=== PATIENT | male | born 1995 | race Asian ===

== ENCOUNTER 2019-03-11 18:01 | Emergency (ER) | payer OTHER ==
--- NOTE | 2019-03-11 18:48 | ED ---
Shortness of Breath - HPI Summary HPI Summary: Patient complains of waking up this morning at 7 AM with a sensation of shortness of breath which lasted 2 hours. Denies prior history of same. States some associated bilateral lower chest tightness. Symptoms resolved after 2 hours. Patient took a nap later and woke up with same symptoms, again associated with bilateral lower chest tightness. Symptoms resolved 2 hours later. Denies new exertional shortness of breath or chest tightness in between episodes. No active symptoms at this time. Denies fever, cough, sore throat, and/V/D, abdominal pain, change in urine, change in BM. Clinical history is asthma, but states no asthma issues for years. - History of Current Complaint Chief Complaint: EDChestPainROMI Time Seen by Provider: 03/11/19 18:46 Hx Obtained From: Patient Onset/Duration: Sudden Onset, Lasting Hours Current Severity: None Dyspnea At: Rest Associated Signs & Symptoms: Negative - Allergy/Home Medications Allergies/Adverse Reactions: Allergies Allergy/AdvReac Type Severity Reaction Status Date / Time No Known Allergies Allergy Verified 03/11/19 18:12 PMH/Surg Hx/FS Hx/Imm Hx Endocrine/Hematology History: Denies: Hx Anticoagulant Therapy Cardiovascular History: Denies: Hx Pacemaker/ICD History: Denies: Hx Dialysis Sensory History: Denies: Hx Eye Prosthesis Opthamlomology History: Denies: Hx Legally Blind EENT History: Denies: Hx Deafness Neurological History: Denies: Hx Dementia Infectious Disease History: No Infectious Disease History: Denies: Traveled Outside the [place] in Last 30 Days - Family History Known Family History: Positive: Non-Contributory Family History: LEVEL 5 CAVEAT: FHxLIMITED DUE TO PT CONDITION, INTOXICATION. - Social History Alcohol Use: Occasionally Substance Use Type: Reports: None Smoking Status (MU): Never Smoked Tobacco Review of Systems Constitutional: Negative Eyes: Negative ENT: Negative Positive: Chest Pain Positive: Shortness Of Breath Gastrointestinal: Negative Genitourinary: Negative Musculoskeletal: Negative Skin: Negative Neurological: Negative Psychological: Normal All Other Systems Reviewed And Are Negative: Yes Physical Exam Triage Information Reviewed: Yes Vital Signs On Initial Exam: Initial Vitals Temp Pulse Resp BP Pulse Ox 99.2 F 81 15 155/92 96 03/11/19 18:11 03/11/19 18:11 03/11/19 18:11 03/11/19 18:11 03/11/19 18:11 Vital Signs Reviewed: Yes Appearance: Positive: Well-Appearing Skin: Positive: Warm Head/Face: Positive: Normal Head/Face Inspection Eyes: Positive: Normal ENT: Positive: Normal ENT inspection Neck: Positive: Supple Respiratory/Lung Sounds: Positive: Clear to Auscultation Cardiovascular: Positive: Normal Abdomen Description: Positive: Nontender Musculoskeletal: Positive: Normal Neurological: Positive: Normal Psychiatric: Positive: Normal AVPU Assessment: Alert Procedures - Sedation Patient Received Moderate/Deep Sedation with Procedure: No Diagnostics - Vital Signs Vital Signs Temp Pulse Resp BP Pulse Ox 03/11/19 18:11 99.2 F 81 15 155/92 96 - Laboratory Result Diagrams: 03/11/19 18:57 03/11/19 18:57 Lab Statement: Any lab studies that have been ordered have been reviewed, and results considered in the medical decision making process. Course/Dx - Course Course Of Treatment: Patient complains of waking up this morning at 7 AM with a sensation of shortness of breath which lasted 2 hours. Denies prior history of same. States some associated bilateral lower chest tightness. Symptoms resolved after 2 hours. Patient took a nap later and woke up with same symptoms , again associated with bilateral lower chest tightness. Symptoms resolved 2 hours later. Denies new exertional shortness of breath or chest tightness in between episodes. No active symptoms at this time. Denies fever, cough, sore throat, and/V/D, abdominal pain, change in urine, change in BM. Clinical history is asthma, but states no asthma issues for years. Vital signs within normal limits. Labs unremarkable. Chest x-ray negative. Flu negative. EKG sinus rhythm, rate of 66, normal P axis. Albuterol inhaler provided. - Diagnoses Provider Diagnoses: Dyspnea, unspecified Discharge ED - Sign-Out/Discharge Documenting (check all that apply): Patient Departure - Discharge Plan Condition: Stable Disposition: HOME Patient Education Materials: Shortness of Breath (ED) Referrals: [facility] Joseph DIANA [Primary Care Provider] - Additional Instructions: Concerning the possible exposure to new allergens in urine. Use inhaler if symptoms recur. Follow-up with primary care. Return to the ED for any new or worsening symptoms. - Billing Disposition and Condition Condition: STABLE Disposition: Home
[2019-03-11 19:06] LABS: ABS Eosinophils 0.7 10^3/ul (0-0.6); ABS Lymphocytes 1.7 10^3/ul (1.0-4.8); ABS Monocytes 0.6 10^3/ul (0-0.8); ABS Neutrophils 3.9 10^3/ul (1.5-7.7); Eosinophil % 9.7 %; Hematocrit 44 % (42-52); Hemoglobin 15.1 g/dL (14.0-18.0); Lymphocyte % 24.6 %; Mean Corpuscular HGB Conc 35 g/dL (31-36); Mean Corpuscular Hemoglobin 30 pg (27-31); Mean Corpuscular Volume 87 fL (80-94); Mean Platelet Volume 9.1 fL (7.4-10.4); Nucleated Red Blood Cells % 0.1; Platelet Count 257 10^3/uL (150-450); Red Blood Count 5.03 10^6 /uL (4.18-5.48); Red Cell Distribution Width 13 % (10-15); White Blood Count 6.9 10^3/uL (3.5-10.8)
[2019-03-11 19:15] LABS: Influenza A Molecular Negative (Negative); Influenza B Molecular Negative (Negative)
[2019-03-11 19:27] LABS: Albumin 4.3 g/dL (3.2-5.2); Albumin/Globulin Ratio 1.8 (1-3); BUN/Creatinine Ratio 13.4 (8-20); C Reactive Protein 1.46 mg/L (<8.01); Calcium 9.4 mg/dL (8.6-10.3); EGFR African American 143.5 (>60); EGFR Non-African American 118.6 (>60); Globulin 2.4 g/dL (2-4); Total Bilirubin 0.6 mg/dL (0.2-1.0); Total Protein 6.7 g/dL (6.4-8.9)
[2019-03-11] MEDS ORDERED: Albuterol HFA INHALER* 8 gm MDI INH ONE (19:38)
[2019-03-11 19:50] VITALS: BP 127/80
== END 2019-03-11 19:50 | disposition home or self-care (01) ==
LOC: ED 18:01
DX: R06.00 Dyspnea, unspecified (principal)
CPT/HCPCS: 36415; 71046; 80053; 84484; 85025; 86140; 93005; 99282; A9270-GY